=== PATIENT | male | born 1940 | race Caucasian/White ===

== ENCOUNTER 2016-07-11 19:53 | Inpatient (IN) ==
[2016-07-11] MEDS ORDERED: (Olopatadine Hcl [Pataday] 1 DROP) OP PRN (20:43)
[2016-07-11] MEDS: Indomethacin 25 MG CAPSULE PO SCH (22:22)
[2016-07-12 04:59] LABS: INR 1.1; Prothrombin Time 11.8 Seconds (9.4-12.1)
[2016-07-12 05:02] LABS: Activated Partial Thrombo Time 29.3 Seconds (26.0-36.0)
[2016-07-12 06:02] LABS: Basophils % 0.3 %; Eosinophils # 0.1 K/mcL (0.0-0.6); Eosinophils % 0.7 %; Hematocrit 34.7 % (37.5-50.1); Hemoglobin 11.7 g/dL (12.9-16.9); Immature Granulocytes % 0.3 % (0-4); Lymphocytes # 1.9 K/mcL (0.6-4.6); Lymphocytes % 16.7 %; Mean Corpuscular HGB Conc 33.7 g/dL (31.6-35.5); Mean Corpuscular Hemoglobin 28.1 pg (28.0-33.3); Mean Corpuscular Volume 83.4 fL (83.0-100.0); Mean Platelet Volume 9.7 fL (9.4-12.4); Monocytes # 1.1 K/mcL (0.0-1.3); Monocytes % 9.5 %; Neutrophils # 8.3 K/mcL (1.6-8.9); Platelet Count 278 K/mcL (140-400); Red Blood Count 4.16 M/mcL (4.19-5.50); Red Cell Distribution Width 17.1 % (11.5-14.5); Segmented Neutrophils % 72.5 %
[2016-07-12] MEDS ORDERED: *HR* Enoxaparin 40 MG/0.4 ML SYRINGE SQ SCH (07:00)
[2016-07-12] MEDS: Aspirin Enteric Coated 325 MG Tablet PO SCH (08:00)
[2016-07-12] MEDS: Metoprolol XL (24 HR) Succ 25 MG TAB.ER.24H PO SCH (08:01)
[2016-07-12] MEDS: Loratadine 10 MG TABLET PO SCH (08:01)
[2016-07-12] MEDS: Indomethacin 25 MG CAPSULE PO SCH ×3 (08:02→20:06)
--- NOTE | 2016-07-12 08:34 | Internal Med History&Physical ---
Date of Encounter: 07/12/16 Time of Encounter: 08:32 Assessment and Plan (1) Cerebrovascular accident Current visit: No Status: Acute Left upper extremities weakness. PT OT to work on balance, transfer, strength, improving activity of daily living. 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 Guerin is a 75 year old male admitted to this facility status post CVA. His only residual his left hand weakness. He denies any headache shortness of breath chest pain. No other deficit. Past Med Surg Social Fam HX - Past Medical History Medical history: cancer, hypertension Psychiatric history: no psych history - Past Surgical History Surgical History: cancer surgery, colectomy - Social History Smoking Status: Former smoker Smokeless Tobacco Status: Yes Alcohol use: none Drug use: none Internal Medicine - H&P: Meds Allopurinol [Zyloprim 100 MG] 100 mg PO BID 07/06/16 [History] Amlodipine [Norvasc] 5 mg PO DAILY 07/06/16 [History] Indomethacin 50 mg PO TID 07/06/16 [History] Loratadine [Claritin] 10 mg PO DAILY 07/06/16 [History] Aspirin Enteric Coated [Aspirin EC] 325 mg PO DAILY 07/11/16 [History] Atorvastatin Calcium [Lipitor] 20 mg PO HS 07/11/16 [History] Metoprolol Succinate 25 mg PO DAILY 07/11/16 [History] Olopatadine HCl [Pataday] 1 drop BOTH EYES DAILY PRN 07/11/16 [History] Allergies No Known Allergies Allergy (Verified 11/30/15 08:47) All Systems PM: A 10-system review of systems was performed and is negative for pertinent findings except as documented above in the HPI. - Cardiovascular Cardiovascular ROS IM: no chest pain, no diaphoresis, no dyspnea, no lightheadedness, no palpitations, no syncope - Respiratory Respiratory: no cough, no dyspnea, no wheezing, no excessive phlegm production - Gastrointestinal Gastrointestinal: no abdominal pain, no diarrhea, no hematemesis, no hematochezia, no melena, no nausea, no vomiting - Musculoskeletal Musculoskeletal ROS IM: arthralgias, back pain - Integumentary Integumentary IM: no rash, no unusual bruising - Neurological Neurological ROS: lack of coordination - Constitutional Vitals: Temp Pulse Resp BP Pulse Ox 97.4 F L 84 18 158/81 98 07/12/16 07:25 07/12/16 07:25 07/12/16 07:25 07/12/16 07:25 07/12/16 07:25 General appearance: Present: A&O X 3, no acute distress - Respiratory Respiratory exam: Present: CTAB. Absent: accessory muscle use, rales, rhonchi, wheezes - Cardiovascular Cardiovascular exam: Present: RRR, +S1, +S2. Absent: diastolic murmur, gallop, rubs, systolic murmur - GI/Abdominal GI/Abdominal exam: Present: normal bowel sounds, soft, no peritoneal signs. Absent: distended, tenderness - Extremities Exam Extremities exam: Present: warm, radial pulses palpable and symetrical. Absent : calf tenderness, cyanotic, pedal edema - Expanded Neurological Exam Neurological exam expanded: Absent: expressive aphasia Neuro motor strength exam: LUE: 3 Internal Med - H&P Results - Labs CBC & Chem 7: 07/12/16 04:30 07/12/16 04:30 Labs: Short CBC 07/12/16 Range/Units 04:30 WBC 11.5 H (4.3-11.1) K/mcL Hgb 11.7 L D (12.9-16.9) g/dL Hct 34.7 L (37.5-50.1) % Plt Count 278 (140-400) K/mcL Neutrophils # 8.3 (1.6-8.9) K/mcL BMP 07/12/16 04:30 Sodium 138 Potassium 4.0 Chloride 112 H Carbon Dioxide 15 L BUN 28 H Creatinine 1.62 H Glucose 117 H Calcium 9.0
[2016-07-13] MEDS: *HR* Enoxaparin 30 MG/0.3 ML SYRINGE SQ SCH (05:12)
[2016-07-13] MEDS: Metoprolol XL (24 HR) Succ 25 MG TAB.ER.24H PO SCH (07:57)
[2016-07-13] MEDS: Indomethacin 25 MG CAPSULE PO SCH ×3 (07:57→21:21)
[2016-07-13] MEDS: Aspirin Enteric Coated 325 MG Tablet PO SCH (07:58)
[2016-07-13] MEDS: Loratadine 10 MG TABLET PO SCH (07:58)
[2016-07-14] MEDS: *HR* Enoxaparin 30 MG/0.3 ML SYRINGE SQ SCH (06:22)
[2016-07-14] MEDS: Loratadine 10 MG TABLET PO SCH (08:17)
[2016-07-14] MEDS: Indomethacin 25 MG CAPSULE PO SCH ×3 (08:17→20:13)
[2016-07-14] MEDS: Metoprolol XL (24 HR) Succ 25 MG TAB.ER.24H PO SCH (08:18)
[2016-07-14] MEDS: Aspirin Enteric Coated 325 MG Tablet PO SCH (08:19)
--- NOTE | 2016-07-14 12:07 | Internal Med Progress Note ---
Date of Encounter: 07/14/16 Time of Encounter: 12:06 - Time Spent With Patient less than 15 minutes - Subjective Interval history: She states doing very well these regaining left arm strength moved at all directions. - Constitutional Vitals: Temp Pulse Resp BP Pulse Ox 97.8 F 76 18 134/74 97 07/14/16 06:00 07/14/16 06:00 07/14/16 06:00 07/14/16 06:00 07/14/16 06:00 General appearance: Present: A&O X 3, no acute distress - Head Head exam: Present: atraumatic, normal inspection, normocephalic - Neck Neck exam general surgery: Present: supple, trachea midline. Absent: lymphadenopathy - Respiratory Respiratory exam: Present: CTAB. Absent: accessory muscle use, rales, rhonchi, wheezes - Cardiovascular Cardiovascular exam: Present: RRR, +S1, +S2. Absent: diastolic murmur, gallop, rubs, systolic murmur - GI/Abdominal GI/Abdominal exam: Present: normal bowel sounds, soft, no peritoneal signs. Absent: distended, tenderness Internal Medicine: Result - Labs CBC & Chem 7: 07/12/16 04:30 07/12/16 04:30 Labs: I have to closely watch his lab due to some abnormalities especially renal function - ABG Interpretation ABG results: PT/INR, D-dimer PT 11.8 Seconds (9.4-12.1) 07/12/16 04:30 Consult Discharge Plan - Plan Referrals: Cornelius Donnelly, ACADEMIC RECORDS SPECIALIST [Primary Care Provider] -
[2016-07-15] MEDS: *HR* Enoxaparin 30 MG/0.3 ML SYRINGE SQ SCH (05:58)
[2016-07-15 06:09] LABS: Calcium 8.5 mg/dL (8.6-10.8); Potassium 4.4 mEq/L (3.5-4.5)
[2016-07-15 06:11] LABS: Basophils # 0.1 K/mcL (0.0-0.2); Basophils % 0.5 %; Eosinophils # 0.3 K/mcL (0.0-0.6); Eosinophils % 2.6 %; Hematocrit 30.4 % (37.5-50.1); Hemoglobin 10.2 g/dL (12.9-16.9); Immature Granulocytes % 0.5 % (0-4); Lymphocytes # 1.7 K/mcL (0.6-4.6); Mean Corpuscular HGB Conc 33.6 g/dL (31.6-35.5); Mean Corpuscular Hemoglobin 28.4 pg (28.0-33.3); Mean Corpuscular Volume 84.7 fL (83.0-100.0); Mean Platelet Volume 10.3 fL (9.4-12.4); Monocytes % 9.7 %; Neutrophils # 7.4 K/mcL (1.6-8.9); Platelet Count 227 K/mcL (140-400); Red Blood Count 3.59 M/mcL (4.19-5.50); Segmented Neutrophils % 70.7 %
[2016-07-15] MEDS: Metoprolol XL (24 HR) Succ 25 MG TAB.ER.24H PO SCH (08:21)
[2016-07-15] MEDS: Aspirin Enteric Coated 325 MG Tablet PO SCH (08:21)
[2016-07-15] MEDS: Loratadine 10 MG TABLET PO SCH (08:22)
[2016-07-15] MEDS: Indomethacin 25 MG CAPSULE PO SCH ×3 (08:28→20:19)
--- NOTE | 2016-07-15 11:39 | Internal Med Progress Note ---
Date of Encounter: 07/15/16 Time of Encounter: 11:37 - Assessment and plan (1) Cerebrovascular accident Current Visit: No Status: Acute Assessment and plan: Main deficits. 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 - Constitutional Vitals: Temp Pulse Resp BP Pulse Ox 97.9 F 86 17 139/71 98 07/15/16 07:00 07/15/16 07:00 07/15/16 07:00 07/15/16 07:00 07/15/16 07:00 General appearance: Present: A&O X 3, no acute distress - Head Head exam: Present: atraumatic, normal inspection, normocephalic - Neck Neck exam general surgery: Present: supple, trachea midline. Absent: lymphadenopathy - Respiratory Respiratory exam: Present: CTAB. Absent: accessory muscle use, rales, rhonchi, wheezes - Cardiovascular Cardiovascular exam: Present: RRR, +S1, +S2. Absent: diastolic murmur, gallop, rubs, systolic murmur - GI/Abdominal GI/Abdominal exam: Present: normal bowel sounds, soft, no peritoneal signs. Absent: distended, tenderness Internal Medicine: Result - Labs CBC & Chem 7: 07/15/16 05:45 07/15/16 05:45 Labs: Short CBC 07/15/16 Range/Units 05:45 WBC 10.5 (4.3-11.1) K/mcL Hgb 10.2 L D (12.9-16.9) g/dL Hct 30.4 L (37.5-50.1) % Plt Count 227 (140-400) K/mcL Neutrophils # 7.4 (1.6-8.9) K/mcL BMP 07/15/16 05:45 Sodium 137 Potassium 4.4 Chloride 115 H Carbon Dioxide 14 L BUN 30 H Creatinine 1.53 H Glucose 136 H Calcium 8.5 L Lab looks good - ABG Interpretation ABG results: PT/INR, D-dimer PT 11.8 Seconds (9.4-12.1) 07/12/16 04:30 Consult Discharge Plan - Plan Referrals: Cornelius Donnelly, ALEX [Primary Care Provider] -
[2016-07-16] MEDS: *HR* Enoxaparin 30 MG/0.3 ML SYRINGE SQ SCH (06:13)
[2016-07-16] MEDS: Aspirin Enteric Coated 325 MG Tablet PO SCH (08:05)
[2016-07-16] MEDS: Loratadine 10 MG TABLET PO SCH (08:05)
[2016-07-16] MEDS: Metoprolol XL (24 HR) Succ 25 MG TAB.ER.24H PO SCH (08:05)
[2016-07-16] MEDS: Indomethacin 25 MG CAPSULE PO SCH ×3 (08:06→19:41)
--- NOTE | 2016-07-16 13:38 | Internal Med Progress Note ---
Date of Encounter: 07/16/16 Time of Encounter: 13:36 - Assessment and plan (1) CVA (cerebral vascular accident) Current Visit: Yes Status: Acute Assessment and plan: Patient is had a CVA with left arm weakness and some left sided body weakness. Qualifiers: Qualified Code(s): I63.9 - Cerebral infarction, unspecified - Time Spent With Patient less than 15 minutes - Subjective Interval history: Balance is still somewhat of a problem .he states doing very well these regaining left arm strength moved at all directions. - Constitutional Vitals: Temp Pulse Resp BP Pulse Ox 98.6 F 80 16 139/69 99 07/16/16 07:00 07/16/16 07:00 07/16/16 07:00 07/16/16 07:00 07/16/16 07:00 General appearance: Present: A&O X 3, no acute distress - Head Head exam: Present: atraumatic, normal inspection, normocephalic - Neck Neck exam general surgery: Present: supple, trachea midline. Absent: lymphadenopathy - Respiratory Respiratory exam: Present: CTAB. Absent: accessory muscle use, rales, rhonchi, wheezes - Cardiovascular Cardiovascular exam: Present: RRR, +S1, +S2. Absent: diastolic murmur, gallop, rubs, systolic murmur - GI/Abdominal GI/Abdominal exam: Present: normal bowel sounds, soft, no peritoneal signs. Absent: distended, tenderness Internal Medicine: Result - Labs CBC & Chem 7: 07/15/16 05:45 07/15/16 05:45 Labs: Lab appears stable - ABG Interpretation ABG results: PT/INR, D-dimer PT 11.8 Seconds (9.4-12.1) 07/12/16 04:30 Consult Discharge Plan - Plan Referrals: Cornelius Donnelly, BENCH CARPENTER [Primary Care Provider] -
[2016-07-17] MEDS: *HR* Enoxaparin 30 MG/0.3 ML SYRINGE SQ SCH (06:35)
[2016-07-17] MEDS: Metoprolol XL (24 HR) Succ 25 MG TAB.ER.24H PO SCH (08:24)
[2016-07-17] MEDS: Aspirin Enteric Coated 325 MG Tablet PO SCH (08:24)
[2016-07-17] MEDS: Loratadine 10 MG TABLET PO SCH (08:24)
[2016-07-17] MEDS: Indomethacin 25 MG CAPSULE PO SCH ×3 (08:24→19:36)
--- NOTE | 2016-07-17 13:08 | Internal Med Progress Note ---
Date of Encounter: 07/17/16 Time of Encounter: 13:06 - Assessment and plan (1) CVA (cerebral vascular accident) Current Visit: Yes Status: Acute Assessment and plan: The patient obviously had a CVA with left-sided weakness. Qualifiers: Qualified Code(s): I63.9 - Cerebral infarction, unspecified - Time Spent With Patient less than 15 minutes - Subjective Interval history: Balance is still somewhat of a problem .he states doing very well these regaining left arm strength moved at all directions. - Constitutional Vitals: Temp Pulse Resp BP Pulse Ox 97.9 F 75 17 133/73 98 07/17/16 07:00 07/17/16 07:00 07/17/16 07:00 07/17/16 07:00 07/17/16 07:00 General appearance: Present: A&O X 3, no acute distress - Head Head exam: Present: atraumatic, normal inspection, normocephalic - Neck Neck exam general surgery: Present: supple, trachea midline. Absent: lymphadenopathy - Respiratory Respiratory exam: Present: CTAB. Absent: accessory muscle use, rales, rhonchi, wheezes - Cardiovascular Cardiovascular exam: Present: RRR, +S1, +S2. Absent: diastolic murmur, gallop, rubs, systolic murmur - GI/Abdominal GI/Abdominal exam: Present: normal bowel sounds, soft, no peritoneal signs. Absent: distended, tenderness - Neurological Exam Neurological exam: Present: CN II-XII intact, motor sensory deficit (Still watching the left arm progress. His lordosis within his visual field disease able to move it but when he cannot see it as trouble. In addition some balance issues), oriented X3, no focal deficits. Absent: pronater drift, facial droop, speech deficit Internal Medicine: Result - Labs CBC & Chem 7: 07/15/16 05:45 07/15/16 05:45 Labs: Labs look stable we will follow - ABG Interpretation ABG results: PT/INR, D-dimer PT 11.8 Seconds (9.4-12.1) 07/12/16 04:30 Consult Discharge Plan - Plan Referrals: Cornelius Donnelly, RUG RENOVATOR [Primary Care Provider] -
--- NOTE | 2016-07-17 15:00 | Psychological Evaluation ---
Date of Encounter: 07/17/16 Time of Encounter: 11:00 History of Present Illness History of present illness: Mr. Guerin is a 75 year old male transferred to [facility] from [facility] following a recent CVA with resultant left side weakness. He was seen on this date to assess his current cognitive and emotional functioning. 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 - Psychiatric History Additional Psychiatric History: There is no history of psychiatric hospitalization and no history of mental health counseling. In addition, there is no family history of mental health or psychiatric issues. Home Medications and Allergies Allopurinol [Zyloprim 100 MG] 100 mg PO BID 07/06/16 [History] Amlodipine [Norvasc] 5 mg PO DAILY 07/06/16 [History] Indomethacin 50 mg PO TID 07/06/16 [History] Loratadine [Claritin] 10 mg PO DAILY 07/06/16 [History] Aspirin Enteric Coated [Aspirin EC] 325 mg PO DAILY 07/11/16 [History] Atorvastatin Calcium [Lipitor] 20 mg PO HS 07/11/16 [History] Metoprolol Succinate 25 mg PO DAILY 07/11/16 [History] Olopatadine HCl [Pataday] 1 drop BOTH EYES DAILY PRN 07/11/16 [History] Allergies No Known Allergies Allergy (Verified 11/30/15 08:47) Social History - Social History Social History: Mr. Guerin and his second have been for 20 years. He stated that his first of lung cancer. They had two children (son age 45 and a daughter age 39). Mr. Guerin retired from [employer] in 2003 where he had been employed for 38.5 years. Prior to his admission, he stated that he spent the day watching TV. 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 Social support consists of his , his son, his daughter and his [id number]-du-eib and son-in-law. - Tobacco Use Smoking Status: Former smoker - Alcohol Use Alcohol Use: none - Drug Use Drug Use: none Cognitive/Emotional Assessment - Cognitive Ability Additional Findings: Mr. Guerin was alert, attentive and oriented for person (name, age, birthdate), place (facility, town) and partially for time (knew month and year but not date) . Speech was muffled but fluent. Thought processes were logical, goal- directed and coherent. Able to do rote but not simple mental arithmetic. Mild impairment noted on digits forward and sentence repetition. Performed in the normal range on verbal comprehension, confrontational naming and social judgment. He performed within the moderately impaired range on a measure of abstract verbal reasoning. Mr. Guerin had no difficulty on measures of social judgment and delayed verbal memory. He presented as aware of his cognitive strengths and weaknesses. - Emotional Status Additional Findings: Mr. Guerin was friendly, cooperative and pleasant. He maintained appropriate eye contact. He denied any symptoms of depression, anxiety or hostility. He described his mood as "pretty good" and displayed euthymic mood. His affect was appropriate and congruent with mood. He denied any pain and reported that his sleep is good. Assessment & Plan - Treatment Plan Treatment Plan/Recommendations: Mr. Guerin presented with mild impairments in the areas of attention, sentence repetition and abstract reasoning. Strengths were found in delayed verbal recall , comprehension, and social judgment. He is managing well from an emotional perspective and has a goal of returning to community living at his home with his . He is to receive outpatient therapy after discharge but will not need any additional psychological intervention. Procedures - Session Time Session Start Time: 11:00 Session Stop Time: 11:30
[2016-07-18] MEDS: *HR* Enoxaparin 30 MG/0.3 ML SYRINGE SQ SCH (06:40)
[2016-07-18] MEDS: Loratadine 10 MG TABLET PO SCH (09:47)
[2016-07-18] MEDS: Indomethacin 25 MG CAPSULE PO SCH ×3 (09:47→20:19)
[2016-07-18] MEDS: Aspirin Enteric Coated 325 MG Tablet PO SCH (09:47)
[2016-07-18] MEDS: Metoprolol XL (24 HR) Succ 25 MG TAB.ER.24H PO SCH (09:47)
--- NOTE | 2016-07-18 11:23 | Internal Med Progress Note ---
Date of Encounter: 07/18/16 Time of Encounter: 11:21 - Assessment and plan (1) CVA (cerebral vascular accident) Current Visit: Yes Status: Acute Assessment and plan: Patient's here for CVA which affects left side of his body. 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 Working with the therapist and in strength and endurance is improving. - Constitutional Vitals: Temp Pulse Resp BP Pulse Ox 99.0 F 88 16 156/78 97 07/18/16 07:00 07/18/16 07:00 07/18/16 07:00 07/18/16 07:00 07/18/16 07:00 General appearance: Present: A&O X 3, no acute distress - Head Head exam: Present: atraumatic, normal inspection, normocephalic - Neck Neck exam general surgery: Present: supple, trachea midline. Absent: lymphadenopathy - Respiratory Respiratory exam: Present: CTAB. Absent: accessory muscle use, rales, rhonchi, wheezes - Cardiovascular Cardiovascular exam: Present: RRR, +S1, +S2. Absent: diastolic murmur, gallop, rubs, systolic murmur Internal Medicine: Result - Labs CBC & Chem 7: 07/15/16 05:45 07/15/16 05:45 Labs: Lab is stable - ABG Interpretation ABG results: PT/INR, D-dimer PT 11.8 Seconds (9.4-12.1) 07/12/16 04:30 Consult Discharge Plan - Plan Referrals: Cornelius Donnelly, NETWORK CONTROL SUPERVISOR [Primary Care Provider] -
[2016-07-19] MEDS: *HR* Enoxaparin 30 MG/0.3 ML SYRINGE SQ SCH (05:21)
[2016-07-19 07:11] VITALS: BP 148/79
[2016-07-19] MEDS: Aspirin Enteric Coated 325 MG Tablet PO SCH (08:04)
[2016-07-19] MEDS: Metoprolol XL (24 HR) Succ 25 MG TAB.ER.24H PO SCH (08:04)
[2016-07-19] MEDS: Loratadine 10 MG TABLET PO SCH (08:04)
[2016-07-19] MEDS: Indomethacin 25 MG CAPSULE PO SCH (08:04)
--- NOTE | 2016-07-19 11:29 | Discharge Summary ---
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 - Discharge Medications Home Medications: Allopurinol [Zyloprim 100 MG] 100 mg PO BID 07/06/16 [History] Amlodipine [Norvasc] 5 mg PO DAILY 07/06/16 [History] Indomethacin 50 mg PO TID 07/06/16 [History] Loratadine [Claritin] 10 mg PO DAILY 07/06/16 [History] Aspirin Enteric Coated [Aspirin EC] 325 mg PO DAILY 07/11/16 [History] Atorvastatin Calcium [Lipitor] 20 mg PO HS 07/11/16 [History] Metoprolol Succinate 25 mg PO DAILY 07/11/16 [History] Olopatadine HCl [Pataday] 1 drop BOTH EYES DAILY PRN 07/11/16 [History] Allergies/Adverse Reactions: Allergies No Known Allergies Allergy (Verified 11/30/15 08:47) Date of admission: 07/11/16 19:54 Primary care physician: Cornelius Donnelly CNP Consults: 07/11/16 20:21 Consult to Occupational Therapy [CONS] Routine Comment: Evaluate, develop and implement POC Consult to Physical Therapy [CONS] Routine Comment: Evaluate, develop and implement POC Consult to Recreational Therapy [CONS] Routine Comment: Evaluate, develop and implement POC Consult to Therapeutic Recreation Director [CONS] Routine Reason for SW Consult: d/c planning Consult to Speech Therapy [CONS] Routine Comment: Evaluate, develop and implement POC Reason for Consult: speech impairment Call Completed: Yes 07/12/16 06:31 Consult to Psychology [CONS] Routine Consulting Provider: Luz Marina Marcano Reason for Consult: eval and treat Call Completed: No Discharging clinician: Warner Jiang Anticipated date of discharge: 07/19/16 - Patient Status Disposition: Home Health Service Condition: Good Functional capacity at discharge: uses cane/walker Overall status at discharge: patient is progressing back to baseline - Discharge Instructions Follow Up With: Cornelius Donnelly CNP [Primary Care Provider] - 07/26/16 2:00 am - Diet and Activity Activity: ambulate only with your walker Diet: advance to your usual diet Interval History: Patient was transferred after CVA. Hospital course: Mr. Guerin is a 75 year old male Was transferred to [facility] for rehabilitation status post CVA which affected the left side. - Time Spent with Patient Total time spent providing and/or coordinating discharge services: Less than 30 minutes - Constitutional Vitals: Temp Pulse Resp BP Pulse Ox 98.7 F 91 16 148/79 98 07/19/16 07:00 07/19/16 07:00 07/19/16 07:00 07/19/16 07:00 07/19/16 07:00 General appearance: Present: A&O X 3, no acute distress - Head Head exam: Present: atraumatic, normal inspection, normocephalic - Neck Neck exam general surgery: Present: supple, trachea midline. Absent: lymphadenopathy - Respiratory Respiratory exam: Present: CTAB. Absent: accessory muscle use, rales, rhonchi, wheezes - Cardiovascular Cardiovascular exam: Present: RRR, +S1, +S2. Absent: diastolic murmur, gallop, rubs, systolic murmur - GI/Abdominal GI/Abdominal exam: Present: normal bowel sounds, soft, no peritoneal signs. Absent: distended, tenderness
--- NOTE | 2016-07-19 11:33 | Physician Discharge Referral ---
Home Health/Hosp Referral Info Transfer to: Home Health Provider in Charge Post Discharge: PCP - Diagnosis (1) CVA (cerebral vascular accident) Status: Acute - Respiratory Orders Smoking Cessation: Smoking cessation has been advised. For more information, call the [place] Tobacco Quit Line at 8-443-CVUU-NOW. - Diet/Nutrition Diet/Nutrition Orders: Regular - Activity Activity Orders: Ambulate Activity: List: Under supervision of family PT and advance as PT recommends - Services Needed Following services are medically necessary services: Nursing, Physical Therapy, Occupational Therapy - Transfer Medications Home Medications: Allopurinol [Zyloprim 100 MG] 100 mg PO BID 07/06/16 [History] Amlodipine [Norvasc] 5 mg PO DAILY 07/06/16 [History] Indomethacin 50 mg PO TID 07/06/16 [History] Loratadine [Claritin] 10 mg PO DAILY 07/06/16 [History] Aspirin Enteric Coated [Aspirin EC] 325 mg PO DAILY 07/11/16 [History] Atorvastatin Calcium [Lipitor] 20 mg PO HS 07/11/16 [History] Metoprolol Succinate 25 mg PO DAILY 07/11/16 [History] Olopatadine HCl [Pataday] 1 drop BOTH EYES DAILY PRN 07/11/16 [History] Allergies/Adverse Reactions: Allergies No Known Allergies Allergy (Verified 11/30/15 08:47) Certification: Further, I certify that my clinical findings support that this patient is homebound (i.e. absences from home require considerable and taxing effort and are for medical reasons or anabaptist services or infrequently or short duration when for other reasons) because: Homebound Reason: Patient requires assistance of a person or device to safely leave home Attestation: My signature below is to certify that this patient is under my care and that I, or nurse practitioner, or a physician's assistant men's lacrosse coach working with me, has a face-to -face encounter with this patient.
== END 2016-07-19 14:25 | disposition home health service (06) | DRG 57 ==
LOC: INPGRE 19:54
PROVIDERS: ADMIT Internal Medicine; ATTEND Internal Medicine